=== PATIENT | male | born 1955 ===

== ENCOUNTER 2025-04-15 10:05 | Outpatient (CLI) | payer BC ==
[2025-04-15] VITALS (21 sets, daily range): BP systolic 121–152; BP diastolic 58–87; PULSE 90–115
== END 2025-04-15 23:59 | disposition home or self-care (01) ==
LOC: CARD DIAG 10:05
PROVIDERS: ATTEND Internal Medicine Interventional Cardiology
DX: R55 Syncope and collapse (principal); R42 Dizziness and giddiness
CPT/HCPCS: 93660